=== PATIENT | female | born 1965 | race Caucasian/White ===

== ENCOUNTER → 2016-11-19 | Day surgery (SDC) | payer OTHER ==
[~2016-11-19] VITALS: Ht 167.6 cm; Wt 62.6 kg
[~2016-11-19] MED LIST: CHOL10008 PO; DIAZ5TAB3 PO; GILDESS PO; OMEP20CA11 PO; Sodium Chloride LOK Flush 10 mL Syringe IV PRN; fentaNYL-PF 50 mCg/mL 2 mL Inj IVPUSH PRN
[2016-11-19 07:39] VITALS: BP 115/78; PULSE 66; RESP 16; O2SAT 99
[2016-11-19] MEDS: 0.9% Sodium Chloride 1,000 ML IV PRN ×2 (07:44→08:10)
[2016-11-19 08:26] VITALS: BP 101/66; PULSE 65; RESP 14; O2SAT 96
[2016-11-19 08:41] VITALS: BP 102/65; PULSE 65; RESP 14; O2SAT 97
--- NOTE | 2016-11-19 08:49 | ENDO ---
[address] [address] ENDOSCOPY PROCEDURE PATIENT: CHAS MCNAIR : 1965 MR#: [id number] ADMIT: 11/19/2016 JOB ID: [id number] DATE: 11/19/2016 PRIMARY PROVIDER: Zulma Zacarias MD PROCEDURE: Colonoscopy with biopsy. INDICATIONS: A 51-year-old female who reports for colon cancer screening. EQUIPMENT: PCF-H180AL SEDATION: 1. Versed 6 mg. 2. Fentanyl 125 mcg. COMPLICATIONS: None identified. BOWEL PREPARATION: Fair, adequate exam. PROCEDURE INFO: After the risks and benefits were explained, written and verbal informed consent was obtained. The patient was brought into the endoscopy suite and placed into the left lateral decubitus position. Sedation was achieved as above. A digital rectal examination accomplished. No significant pathology appreciated. The scope was introduced into the rectum and advanced under direct visualization to the level of the cecum as identified by the appendiceal orifice and ileocecal valve. The scope was slowly withdrawn to carefully examine the mucosa for any defects or lesions. Retroflexed views were avoided in the rectum. Multiple direct views were made through the dentate line for exclusion of pathology. The colon was decompressed. The scope removed from the patient who tolerated the procedure well. FINDINGS: No significant polyps or mass lesions throughout. The mucosa in and around the ileocecal valve appeared to have lost its normal vascular pattern. There was a little friability in the granularity about the mucosa. It was difficult to determine whether this was related to prep artifact or whether this was a chronic inflammatory process. A couple of biopsies were therefore taken from this region for histopathologic analysis. The terminal ileum appeared to be within normal limits. ENDOSCOPIC DIAGNOSES: 1. Mild ascending colon inflammation. 2. Mild ascending colon inflammation about the ICV. 3. Otherwise visually unremarkable colonoscopy. RECOMMENDATIONS: 1. Await histopathology. 2. Consider repeat colonoscopy in five years' time. 3. If there are any symptoms of inflammatory bowel disease. The patient should be referred back to GI clinic for further discussion.
[2016-11-19 08:51] VITALS: BP 104/66; PULSE 72; RESP 14; O2SAT 98
--- NOTE | 2016-11-20 17:25 | PATH ---
SURGICAL PATHOLOGY Attending Physician:Gretchen Allen CASE STATUS: Signed Out PATIENT NAME: CHAS MCNAIR PID: [id number] : 1965 DATE COLLECTED:11/19/2016 16:29 SPECIMEN: Colon, Biopsy CLINICAL HISTORY: 1). ASCENDING COLON BIOPSY FINAL DIAGNOSIS: Ascending Colon, Biopsies: Colonic mucosa with no significant diagnostic abnormality. Negative for active or microscopic colitis. Negative for granulomata, dysplasia or malignancy. ICD10: Z12.11 GROSS DESCRIPTION: The specimen is received in one formalin filled container labeled with the patient's name, sublabeled "ascending colon" and consists of 2 portions of tissue which aggregate to 0.2 x 0.2 x 0.2 CM. The specimen is entirely submitted in one cassette. 11/19/2016DC ICD-9 CODES: CPT CODES: 1: 54930 Electronically Signed Out Nicolás Starkey MD, Ph.D. [facility] Pathology [facility] [address], [place] [address] Technical component performed at [facility], [address] [place] [address] [address], [place], [address]
== END | disposition home or self-care (01) ==
LOC: END 00:27
PROVIDERS: ATTEND Internal Medicine Gastroenterology
DX: Z12.11 Encounter for screening for malignant neoplasm of colon (principal); K63.89 Other specified diseases of intestine; Z83.71 Family history of colonic polyps
CPT/HCPCS: 45380; 99153; G0500; J2250; J3010; J7030